=== PATIENT | female | born 1950 | race Caucasian/White ===

== ENCOUNTER → 2020-05-01 | Outpatient (CLI) | payer MEDICARE, OTHER ==
[~2020-05-01] MED LIST: ASPIR 8181 M1 PO; CALCIUM ACETAT667 M1 PO; CELEXA40 MG PO; CIFEREX 3,7751 EACH PO; COREG3.125 MG PO; COUMADIN 3 MG TA3 M1 PO; DIALYVITE 8000.8 M1 PO; ESTER-C 1,0001 EACH PO; GABAPENTIN100 MG PO; KEPPRA 500 MG500 MG PO; LASIX 80 MG TAB80 MG PO; LEVO-T125 MCG PO; MIRTAZAPINE15 M2 PO; NORCO 5-325 TA1 EAC2 PO; NOVOLIN N100 UNIT/2 SUBQ; OMEGA-3 KRILL1 EAC2 PO; PACERONE 200 M200 M1 PO; PACERONE200 MG PO; ROSUVASTATIN CA40 MG PO; VITAMIN B-121000 MC2 PO; VITAMIN D325 MC2 PO; WARFARIN SODIUM2 MG PO; ZETIA10 MG PO
== END ==
LOC: M.LAB 09:26
PROVIDERS: ATTEND Surgery
DX: Z01.812 Encounter for preprocedural laboratory examination (principal); Z20.828 Contact with and (suspected) exposure to other viral communicable diseases; N18.6 End stage renal disease

== ENCOUNTER → 2020-05-06 | Day surgery (SDC) | payer MEDICARE, OTHER ==
--- NOTE | ~2020-05-06 | OP ---
[facility] [address] [place] [address] OPERATIVE REPORT Name: TRUE RAMIREZ Room: [facility]#: [id number] Admission: 05/06/20 Attend Phys: Jas Mancera Discharge: Date of : 52 Report #: [id number] THIS REPORT FOR: //name// cc: DONNIE TATE KEVIN ~ CC: Allison TATE DATE OF SERVICE: 05/06/2020 PREOPERATIVE DIAGNOSIS: End-stage renal disease. POSTOPERATIVE DIAGNOSIS: End-stage renal disease. PROCEDURE: Removal of tunneled intraperitoneal catheter. SURGEON: Jas Mancera MD ANESTHESIA: General. ESTIMATED BLOOD LOSS: Minimal. SPECIMEN: None. DESCRIPTION OF PROCEDURE: After informed consent was obtained, the patient was brought to the operating room and placed supine. SCDs were placed and working, preoperative clindamycin was administered, general anesthesia was induced. The abdomen was prepped and draped in the usual sterile fashion. I made an elliptical incision around the exit site. Cautery dissection was made to dissect around the cuff, which was freed up. I then made a counter incision over the internal cuff. Cautery dissection was made down to the fascia and the external cuff was freed up with cautery and removed. The catheter slid out very easily after that. The skin was then closed with 4-0 Monocryl. Incisions were sealed with Dermabond. COMPLICATIONS: None. DISPOSITION: The patient was taken to recovery in satisfactory condition. By: [id number] Mancera MD /le[place]on
[2020-05-06 06:37] LABS: HEMATOCRIT 28.6 % (37.0-47.0); HEMOGLOBIN 9.2 gm/dL (12.0-15.0); MCH 33.7 pg (26.0-34.0); MCHC 32.4 g/dL (28.0-37.0); MCV 104.3 fL (80.0-100.0); MPV 7.5 fl. (7.2-11.1); RBC 2.74 mil/uL (4.20-5.00); RDW-CV 20.5 % (10.5-14.5)
[2020-05-06 06:51] LABS: CALCIUM 9.4 mg/dL (8.5-10.1); CREATININE 7.5 mg/dL (0.6-1.3); POTASSIUM 4.7 mmol/L (3.5-5.1)
[2020-05-06 06:56] LABS: ALBUMIN 3.8 g/dL (3.4-5.0); TOTAL BILIRUBIN 0.4 mg/dL (<0.1-1.0); TOTAL PROTEIN 7.7 g/dL (6.4-8.2)
[2020-05-06 07:16] LABS: APTT 22.4 Seconds (25.0-31.3); INR 1.1; PROTIME 10.7 Seconds (9.20-11.50)
--- NOTE | 2020-05-06 18:30 | EKG ---
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: [facility] : 1950 Requested By: Jas Mancera Order Number: [id number] Meredith MD: Andrew Azar Measurements Intervals [place] Rate: 123 P: PA: QRS: 68 QRSD: 148 T: -39 QT: 405 QTc: 580 Interpretive Statements Junctional tachycardia Right bundle branch block Inferior infarct, age indeterminate No previous ECG available for comparison Electronically Signed On 05-06-2020 18:29:58 CDT by Andrew Azar [email or web address] <ELECTRONICALLY SIGNED> By: Andrew Azar MD, [facility] 05/06/20 1829 Andrew zAar MD, [facility] /EPI
== END | disposition home or self-care (01) ==
LOC: M.SUR 06:16
PROVIDERS: ATTEND Surgery
DX: I13.2 Hypertensive heart and chronic kidney disease with heart failure and with stage 5 chronic kidney disease, or end stage renal disease (principal); I50.9 Heart failure, unspecified; N18.6 End stage renal disease; E11.22 Type 2 diabetes mellitus with diabetic chronic kidney disease; E03.9 Hypothyroidism, unspecified; I25.10 Atherosclerotic heart disease of native coronary artery without angina pectoris; F32.9 Major depressive disorder, single episode, unspecified; I48.0 Paroxysmal atrial fibrillation; Z99.2 Dependence on renal dialysis; Z79.82 Long term (current) use of aspirin; Z79.84 Long term (current) use of oral hypoglycemic drugs; Z79.899 Other long term (current) drug therapy; Z98.890 Other specified postprocedural states; Z88.2 Allergy status to sulfonamides; Z88.1 Allergy status to other antibiotic agents; Z88.8 Allergy status to other drugs, medicaments and biological substances; Z95.5 Presence of coronary angioplasty implant and graft

== ENCOUNTER 2021-01-06 16:30 | Emergency (ER) | payer MEDICARE, OTHER ==
[~2021-01-06] VITALS: Ht 157.5 cm; Wt 90.7 kg
[2021-01-06 17:13] LABS: HEMATOCRIT 29.9 % (37.0-47.0); HEMOGLOBIN 10.1 gm/dL (12.0-15.0); MCH 34.1 pg (26.0-34.0); MCHC 33.9 g/dL (28.0-37.0); MCV 100.6 fL (80.0-100.0); MPV 8.4 fl. (7.2-11.1); NUCLEATED RBCS 0 /100WBC; PLATELET COUNT* 107 thou/uL (150-400); RBC 2.97 mil/uL (4.20-5.00); RDW-CV 16.6 % (10.5-14.5); WBC 5.8 thou/uL (4.0-11.0)
[2021-01-06 17:21] LABS: CALCIUM 8.8 mg/dL (8.5-10.1); CREATININE 4.2 mg/dL (0.6-1.3); POTASSIUM 3.5 mmol/L (3.5-5.1)
[2021-01-06 17:26] LABS: ALBUMIN 3.6 g/dL (3.4-5.0); TOTAL BILIRUBIN 0.4 mg/dL (<0.1-1.0); TOTAL PROTEIN 7.1 g/dL (6.4-8.2)
[2021-01-06 17:46] LABS: ABSOLUTE LYMPHOCYTES 1.4 thou/uL (0.8-5.3); ABSOLUTE MONOCYTES 0.2 thou/uL (0.0-1.2); ABSOLUTE NEUTROPHILS 4.2 thou/uL (1.6-8.1)
[2021-01-06 17:47] LABS: ANISOCYTOSIS 1+; PLATELET ESTIMATE ADEQUATE
[2021-01-06] MEDS ORDERED: MECLIZINE HCL25 M1 PO (18:01)
[2021-01-06 18:38] VITALS: BP 120/41
--- NOTE | 2021-01-07 09:02 | EKG ---
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[place] : 1950 Requested By: Miguel Hartman Order Number: [id number] MD: Andrew Azar Measurements Intervals [place] Rate: 132 P: MO: QRS: 73 QRSD: 153 T: 230 QT: 379 QTc: 562 Interpretive Statements Atrial fibrillation Right bundle branch block Inferior infarct, age indeterminate Artifact in lead(s) I,II,III,aVR,aVL,aVF,V2,V3,V4,V5,V6 Compared to ECG 05/06/2020 06:36:25 Junctional tachycardia no longer present Myocardial infarct finding still present Electronically Signed On 01-07-2021 9:01:51 CDT by Andrew Azar [email or web address] <ELECTRONICALLY SIGNED> By: Andrew Azar MD, FACC 01/07/21900 00 00 Andrew Azar MD, [facility] /EPI
== END 2021-01-06 18:39 | disposition home or self-care (01) ==
LOC: M.ERS 16:30
PROVIDERS: Emergency Medicine Emergency Medical Services
DX: R42 Dizziness and giddiness (principal); E11.9 Type 2 diabetes mellitus without complications; Z88.1 Allergy status to other antibiotic agents; Z88.2 Allergy status to sulfonamides; Z88.0 Allergy status to penicillin; Z88.8 Allergy status to other drugs, medicaments and biological substances; Z99.2 Dependence on renal dialysis

== ENCOUNTER 2021-01-29 12:09 | Inpatient (IN) | payer MEDICARE, OTHER ==
[~2021-01-29] VITALS: Ht 157.5 cm; Wt 89.4 kg
--- NOTE | ~2021-01-29 | CON ---
[address] [address] CONSULTATION Name: TRUE RAMIREZ Room: [address] IN .[place].#: [id number] Admission: 01/29/21 Attend Phys: Wally Grove MD Discharge: Date of : 52 Report #: [id number] THIS REPORT FOR: cc: DONNIE TATE,Rita Juares MD ~ DOC #: [id number] Rita Tomas MD DATE OF CONSULTATION: 01/30/2021 NEPHROLOGY CONSULTATION CONSULTING PHYSICIAN: Dr. Trejo. REASON FOR NEPHROLOGY CONSULTATION: ESRD, for maintenance hemodialysis. REASON FOR ADMISSION: Seizures. CHIEF COMPLAINT: She had a seizure-like activity at the dialysis facility. HISTORY OF PRESENT ILLNESS: This is a 71-year-old female who has end-stage renal disease, on hemodialysis every Wednesday, Wednesday and Wednesday, has a left arm AV fistula, goes to [facility], had a seizure-like activity at dialysis, hence unable to do her dialysis and was brought to the Emergency Room here. She has not had a seizure over here yet and Neurology is evaluating her. She was dialyzed yesterday here in the hospital. She has a history of seizures and apparently takes medication for it. She has been in the rehab place recently because of fall and broken humerus. She, otherwise, has no complaints today. ALLERGIES: TO CEPHALOSPORINS, CIPROFLOXACIN, SULFA, TAZOBACTAM, ATORVASTATIN, PENICILLINS. REVIEW OF SYSTEMS: As mentioned in history of present illness, otherwise 10-point review of systems are negative. HOME MEDICATIONS: Which include baby aspirin, Coumadin, NPH insulin, gabapentin, lactulose, metoprolol, ranolazine, sevelamer, folic acid, Novolin, senna, Tarceva, vitamin B12, levothyroxine, vitamin D3, mirtazapine, amiodarone, Lasix, Zetia, ascorbic calcium, Dialyvite, rosuvastatin. PAST MEDICAL AND SURGICAL HISTORY: Which includes ESRD, on hemodialysis every Wednesday, Wednesday and Wednesday. She has a left arm AV fistula, diabetes mellitus type 2, seizures, hypertension, [place] [address] CONSULTATION Name: TRUE RAMIREZ Room: [address] IN [facility].#: [id number] Admission: 01/29/21 Attend Phys: Wally Groev MD Discharge: Date of : 52 Report #: [id number] FAMILY HISTORY: Reviewed, noncontributory. SOCIAL HISTORY: Does not smoke or drink alcohol or use illicit drugs. PHYSICAL EXAMINATION: VITAL SIGNS: Her blood pressure is 120/36, temperature 36.5, pulse rate is 60, respiratory rate is 16, pulse ox is 96%. She was on 2 liters of oxygen via nasal cannula. GENERAL: She is awake, alert, oriented x 3. HEAD AND EYES: Atraumatic, normocephalic. Conjunctivae were normal. EARS, NOSE AND THROAT: Normal ears and nose. Mucous membranes are moist. NECK: No JVD. CHEST: Bilaterally clear to auscultation anteriorly. No crackles or wheezing. CARDIOVASCULAR: S1, S2 normal. No murmurs. ABDOMEN: Soft, nondistended, nontender. LOWER EXTREMITIES: There is no lower extremity edema. DIALYSIS ACCESS: She has a left arm AV fistula with good bruit and good thrill. LABORATORY DATA: WBC is 5.3, hemoglobin is 8.2. Sodium 138, potassium 3.6, CO2 of 33. Other labs are reviewed. IMAGING: Chest x-ray was reviewed. ASSESSMENT: 1. End-stage renal disease, on hemodialysis every Wednesday, Wednesday and Wednesday, she had her complete dialysis yesterday in the hospital. 2. History of seizures, came in with a seizure. Neurology is evaluating. 3. Mitral valve replacement and she is on Coumadin. 4. Anemia of chronic kidney disease. 5. Hypertension. 6. Diabetes type 2. We will defer to primary team for management. PLAN: 1. Next dialysis will be tomorrow. 2. Erythropoietin added for anemia. Thank you for this consultation. We will continue to follow for dialysis needs. MD Regalado/[place] [address] CONSULTATION Name: TRUE RAMIREZ Room: [place] [address] ADM IN ..#: [id number] Admission: 01/29/21 Attend Phys: Wally Grove MD Discharge: Date of : 52 Report #: [id number] By: [id number] Tomas MD /leighton
--- NOTE | ~2021-01-29 | CON ---
[address] [address] CONSULTATION Name: TRUE RAMIREZ Room: [place] [address] ADM IN [place].#: [id number] Admission: 01/29/21 Attend Phys: Wally Grove MD Discharge: Date of : 52 Report #: [id number] THIS REPORT FOR: cc: DONNIE TATE,DONNIE Alex,Clifford Baltazar MD ~ DOC #: [id number] Clifford Alex MD DATE OF CONSULTATION: 01/29/2021 HISTORY OF PRESENT ILLNESS: This is a 71-year-old female patient who was evaluated by me for seizure. History is very difficult in this patient. There is no firsthand witness. The patient says she lives by herself. She said she started having seizures 1 year ago. She was taken to [facility]. It was during the COVID pandemic. She does not believe that there is any testing on her and just sent her home. She saw a neurologist who told her that she has seizure. I do not have any records in that regard. He put her on some medication, the name of which she does not know. Record indicates it is Keppra, but she does not think it is Keppra. She did get a dose of Keppra in the Emergency Room. I have asked the nurses to call the pharmacy and see if we can get any records in this patient to see what medication she was on. REVIEW OF SYSTEMS: A 14-point review of system was carried out. She is on dialysis. She does not know why she went on dialysis. She had a mitral valve replacement. She has a history of diabetes. She has severe anxiety. She is very claustrophobic and she says even the thought of doing a CAT scan or MRI makes her very nervous. She does have tremor. She takes gabapentin for that. She is on warfarin for the valve replacement. She does have a history of diabetes. She denies any eye, ENT, cardiac, respiratory, GI, musculoskeletal, constitutional, dermatological, hematological, psychiatric, and throat symptom associated with present symptomatology, but she says she is a very, very nervous person. PAST MEDICAL HISTORY: Positive for being on dialysis. FAMILY HISTORY: Unremarkable. SOCIAL HISTORY: She does not drink any alcohol or smoke. PHYSICAL EXAMINATION: VITALS: Blood pressure is 129/73, respirations 20, pulse is 63, and temperature is 97.8. NEUROLOGIC: She is alert. She is responsive. She can follow simple commands. She knows what month it is. Cranial nerve examinations appear unremarkable. Speech looks intact. She moves all 4 extremities symmetr[place] [address] CONSULTATION Name: RAMIREZTRUE Surendra Room: [address] IN ..#: [id number] Admission: 01/29/21 Attend Phys: Wally Grove MD Discharge: Date of : 52 Report #: [id number] sense is present. Reflexes are diminished. She does not appear to be ataxic. I did not make her walk. There is no meningeal sign. I could not look at the patient's fundus. She is morbidly obese. Her hearing and vision look adequate. She does not appear to have a thyroid mass or carotid bruit. CARDIAC/RESPIRATORY: She has a valve replacement. No respiratory difficulty was noticed. Pulses are difficult to feel, but she does not have any edema. LABORATORY DATA: Her last platelet count is 123. GFR is 5. She did not have any imaging studies here. IMPRESSION AND PLAN: Poorly defined history of seizure. She is also very anxious. I have asked the nurse to call the pharmacy and then call me to see if we can find out what medication she was on for seizures, so that we could start that. She will not let me do another CT, she says she has it, because she is very nervous. I offered EEG. She did not let me do that either. I think we can start her on the same medication. Thank you very much for this referral and if you have any question, please feel free to contact me. Clifford Alex MD PK/MARITZA By: [id number] Alex MD /nt
[~2021-01-29 12:09] MED LIST changes: +MECLIZINE HCL25 M1 PO
[2021-01-29 12:11] VITALS: BP 111/43
[2021-01-29] MEDS ORDERED: ASA81BEC PO (12:26)
[2021-01-29] MEDS ORDERED: KRISTALOSE20 GM PO (12:27)
[2021-01-29] MEDS ORDERED: LOPRESSOR50 MG PO (12:28)
[2021-01-29] MEDS ORDERED: RANOLAZINE ER500 MG PO (12:28)
[2021-01-29] MEDS ORDERED: WARFARIN SODIU2.5 MG PO (12:29)
[2021-01-29] MEDS ORDERED: RENVELA0.8 GM PO (12:29)
[2021-01-29 12:55] LABS: ABSOLUTE BASOPHILS 0.1 thou/uL (0.0-0.2); ABSOLUTE EOSINOPHILS 0.2 thou/uL (0.0-0.7); ABSOLUTE LYMPHOCYTES 1.3 thou/uL (0.8-5.3); ABSOLUTE MONOCYTES 0.5 thou/uL (0.0-1.2); EOSINOPHILS 2.1 %; HEMATOCRIT 24.7 % (37.0-47.0); HEMOGLOBIN 8.6 gm/dL (12.0-15.0); LYMPHOCYTES 16.3 %; MCH 34.3 pg (26.0-34.0); MCHC 34.8 g/dL (28.0-37.0); MCV 98.5 fL (80.0-100.0); MONOCYTES 6.1 %; MPV 8.9 fl. (7.2-11.1); NUCLEATED RBCS 0 /100WBC; PLATELET COUNT* 123 thou/uL (150-400); POLYS 74.5 %; RBC 2.51 mil/uL (4.20-5.00); RDW-CV 15.8 % (10.5-14.5)
[2021-01-29 13:01] LABS: CALCIUM 8.9 mg/dL (8.5-10.1); CREATININE 7.4 mg/dL (0.6-1.3); POTASSIUM 4.3 mmol/L (3.5-5.1)
[2021-01-29 13:06] LABS: ALBUMIN 3.3 g/dL (3.4-5.0); TOTAL BILIRUBIN 0.3 mg/dL (<0.1-1.0); TOTAL PROTEIN 6.7 g/dL (6.4-8.2)
[2021-01-29 14:25] VITALS: BP 111/43
[2021-01-29 14:42] VITALS: BP 129/73
[2021-01-29] MEDS ORDERED: FOLIC ACID1 MG PO (15:30)
[2021-01-29] MEDS ORDERED: LASIX 40 MG TAB40 MG PO (15:33)
[2021-01-29] MEDS ORDERED: NOVOLIN R100 UNIT/1 SUBLING (15:36)
[2021-01-29] MEDS ORDERED: SENNA PLUS TAB1 EACH PO (15:41)
[2021-01-29] MEDS ORDERED: VITAMIN B-121000 MC2 PO (15:42)
[2021-01-29] MEDS ORDERED: TRESIBA FL100 UNIT/1 SUBQ (15:42)
[2021-01-29 17:59] LABS: INR 1.5; PROTIME 15.9 Seconds (9.20-11.50)
[2021-01-29 21:30] VITALS: BP 93/76
[2021-01-29 23:58] VITALS: BP 111/32
[2021-01-30 04:00] VITALS: BP 107/28
[2021-01-30 05:15] LABS: ABSOLUTE EOSINOPHILS 0.2 thou/uL (0.0-0.7); ABSOLUTE LYMPHOCYTES 1.6 thou/uL (0.8-5.3); ABSOLUTE MONOCYTES 0.4 thou/uL (0.0-1.2); ABSOLUTE NEUTROPHILS 3.1 thou/uL (1.6-8.1); BASOPHILS 0.6 %; HEMATOCRIT 23.7 % (37.0-47.0); HEMOGLOBIN 8.2 gm/dL (12.0-15.0); LYMPHOCYTES 29.3 %; MCH 34.3 pg (26.0-34.0); MCHC 34.5 g/dL (28.0-37.0); MCV 99.6 fL (80.0-100.0); MPV 8.6 fl. (7.2-11.1); NUCLEATED RBCS 0 /100WBC; PLATELET COUNT* 99 thou/uL (150-400); POLYS 59.1 %; RBC 2.38 mil/uL (4.20-5.00); RDW-CV 15.9 % (10.5-14.5); WBC 5.3 thou/uL (4.0-11.0)
[2021-01-30 05:27] LABS: CALCIUM 8.2 mg/dL (8.5-10.1); POTASSIUM 3.6 mmol/L (3.5-5.1)
[2021-01-30 05:34] LABS: CREATININE 4.6 mg/dL (0.6-1.3)
[2021-01-30 07:30] VITALS: BP 113/53
--- NOTE | 2021-01-30 11:39 | EKG ---
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: [place] : 1950 Requested By: Thien Trejo Order Number: [id number] MD: Andrew Azar Measurements Intervals [place] Rate: 53 P: 0 DC: 62 QRS: 65 QRSD: 164 T: 36 QT: 536 QTc: 504 Interpretive Statements Sinus rhythm Right bundle branch block Baseline wander in lead(s) II,III,aVF Compared to ECG 01/06/2021 17:01:13 Atrial fibrillation no longer present Myocardial infarct finding no longer present Electronically Signed On 01-30-2021 11:39:47 CDT by Andrew Azar [email or web address] <ELECTRONICALLY SIGNED> By: Andrew Azar MD, FAC 01/30/21 1139 1224 1224 Andrew Azar MD, [facility] /EPI
[2021-01-30 12:00] VITALS: BP 138/37
[2021-01-30 16:00] VITALS: BP 134/59
[2021-01-30 17:07] LABS: HEPATITIS B SURFACE AG Negative (Negative)
[2021-01-30 20:00] VITALS: BP 110/39
[2021-01-31 00:42] VITALS: BP 125/43
[2021-01-31 04:12] LABS: ABSOLUTE EOSINOPHILS 0.2 thou/uL (0.0-0.7); ABSOLUTE LYMPHOCYTES 1.2 thou/uL (0.8-5.3); ABSOLUTE MONOCYTES 0.3 thou/uL (0.0-1.2); ABSOLUTE NEUTROPHILS 3.5 thou/uL (1.6-8.1); BASOPHILS 0.5 %; EOSINOPHILS 2.9 %; HEMATOCRIT 22.6 % (37.0-47.0); HEMOGLOBIN 7.8 gm/dL (12.0-15.0); LYMPHOCYTES 23.5 %; MCH 33.7 pg (26.0-34.0); MCHC 34.5 g/dL (28.0-37.0); MCV 97.8 fL (80.0-100.0); MONOCYTES 6.5 %; MPV 8.6 fl. (7.2-11.1); NUCLEATED RBCS 0 /100WBC; PLATELET COUNT* 113 thou/uL (150-400); POLYS 66.6 %; RBC 2.31 mil/uL (4.20-5.00); RDW-CV 16.1 % (10.5-14.5); WBC 5.3 thou/uL (4.0-11.0)
[2021-01-31 04:22] LABS: CALCIUM 8.3 mg/dL (8.5-10.1); POTASSIUM 3.6 mmol/L (3.5-5.1)
[2021-01-31 04:28] LABS: CREATININE 6.6 mg/dL (0.6-1.3)
[2021-01-31 08:34] VITALS: BP 126/38
[2021-01-31] MEDS ORDERED: KEPPRA 500 MG500 MG PO (10:05)
[2021-01-31 11:02] LABS: INR 1.4; PROTIME 14.6 Seconds (9.20-11.50)
[2021-01-31 11:20] VITALS: BP 126/38
== END 2021-01-31 18:45 | DRG 100 ==
LOC: M.ERS 12:09 → M.TBA-ER 12:54 → M.2W 12:54 → M.ORTHSURG 01-31 00:08
PROVIDERS: Family Medicine; ADMIT Internal Medicine; ATTEND Internal Medicine
DX: R56.9 Unspecified convulsions (principal); N18.6 End stage renal disease; S42.301A Unspecified fracture of shaft of humerus, right arm, initial encounter for closed fracture; I12.0 Hypertensive chronic kidney disease with stage 5 chronic kidney disease or end stage renal disease; Z20.822 Contact with and (suspected) exposure to COVID-19; E11.22 Type 2 diabetes mellitus with diabetic chronic kidney disease; D63.1 Anemia in chronic kidney disease; Z99.2 Dependence on renal dialysis; Z87.81 Personal history of (healed) traumatic fracture; Z95.2 Presence of prosthetic heart valve; Z88.1 Allergy status to other antibiotic agents; Z88.0 Allergy status to penicillin; Z88.2 Allergy status to sulfonamides; Z88.8 Allergy status to other drugs, medicaments and biological substances; W18.39XA Other fall on same level, initial encounter; Y93.89 Activity, other specified; Y92.89 Other specified places as the place of occurrence of the external cause; Y99.8 Other external cause status

== ENCOUNTER 2021-03-03 12:03 | Observation (INO) | payer MEDICARE, OTHER ==
[~2021-03-03] VITALS: Ht 157.5 cm; Wt 90.3 kg
--- NOTE | ~2021-03-03 | CON ---
[address] [address] CONSULTATION Name: TRUE RAMIREZ Room: [address] [place]#: [id number] Admission: 03/03/21 Attend Phys: Marcia Arnold Discharge: Date of : 52 Report #: [id number] THIS REPORT FOR: cc: DONNIE TATE,DONNIE Schwarz,Allison Cronin MD ~ DATE OF CONSULTATION: 03/04/2021 CONSULT REQUESTED BY: Donald Sutherland DO. REASON FOR CONSULTATION: End-stage kidney disease. HISTORY OF PRESENT ILLNESS: A 71-year-old female with a history of end-stage kidney disease. She dialyzes Wednesday, Wednesday, and Wednesday at the [place] dialysis unit, missed her dialysis yesterday, had a temperature of 100.0. She tells me she believes the highest temperature she had was 100.6. She was feeling fine. She denies any cough, chest pain or new shortness of breath. She is presently seen on dialysis, is tolerating treatment well. She is anuric. REVIEW OF SYSTEMS: Constitutional, psych, heme, eyes, ENT, respiratory, cardiac, GI, , endocrine, all negative except as documented above. PAST MEDICAL HISTORY: End-stage kidney disease, on hemodialysis, at one time she was on peritoneal dialysis; diabetes type 2; seizures; hypertension; history of mitral valve replacement. FAMILY HISTORY: Noncontributory in this 71-year-old female. CURRENT MEDICATIONS: Reviewed. SOCIAL HISTORY: No tobacco or alcohol. PHYSICAL EXAMINATION: VITAL SIGNS: Blood pressure is 141/51, pulse 59, respirations 16, temperature 36.6. GENERAL: No acute distress. HEENT: Eyes are open. Ears externally normal. NECK: Supple. CARDIOVASCULAR: Regular rate. LUNGS: No crackles. ABDOMEN: Soft. MUSCULOSKELETAL: Nontender. PSYCHIATRIC: Awake, alert. LABORATORY DATA: White cell count 8.1, hemoglobin 7.5, [place] [address] CONSULTATION Name: TRUE RAMIREZ Room: [address] [place]#: [id number] Admission: 03/03/21 Attend Phys: Marcia Arnold Discharge: Date of : 52 Report #: [id number], potassium 4.3, chloride 104, bicarbonate 31, BUN 65, creatinine 11, glucose 116, calcium 8.6. PLAN: The patient will undergo dialysis today. She will need dialysis again tomorrow. Should she remain inpatient, we can do that here. Should she discharge, she can go to her outpatient dialysis unit. I will discontinue the Lasix as she is anuric and there is no indication to continue the Lasix at this time. She has some mild congestion on her chest x-ray. We will ultrafilter with dialysis as tolerated. Anemia and thrombocytopenia per Internal Medicine. Insulin-dependent diabetes type 2 per Internal Medicine. Secondary hyperparathyroidism, continue sevelamer. By: [id number] Mehrdad Schwarz MD /nt
[~2021-03-03 12:03] MED LIST changes: +ASA81BEC PO; +FOLIC ACID1 MG PO; +KRISTALOSE20 GM PO; +LASIX 40 MG TAB40 MG PO; +LOPRESSOR50 MG PO; +NOVOLIN R100 UNIT/1 SUBLING; +RANOLAZINE ER500 MG PO; +RENVELA0.8 GM PO; +SENNA PLUS TAB1 EACH PO; +TRESIBA FL100 UNIT/1 SUBQ; +WARFARIN SODIU2.5 MG PO
[2021-03-03 12:16] VITALS: BP 128/59
[2021-03-03 13:04] LABS: ABSOLUTE EOSINOPHILS 0.1 thou/uL (0.0-0.7); ABSOLUTE LYMPHOCYTES 1.1 thou/uL (0.8-5.3); ABSOLUTE MONOCYTES 0.5 thou/uL (0.0-1.2); ABSOLUTE NEUTROPHILS 5.6 thou/uL (1.6-8.1); BASOPHILS 0.4 %; EOSINOPHILS 1.9 %; HEMATOCRIT 22.7 % (37.0-47.0); HEMOGLOBIN 7.4 gm/dL (12.0-15.0); LYMPHOCYTES 14.4 %; MCH 32.7 pg (26.0-34.0); MCHC 32.5 g/dL (28.0-37.0); MCV 100.7 fL (80.0-100.0); MONOCYTES 7.3 %; MPV 8.6 fl. (7.2-11.1); NUCLEATED RBCS 0 /100WBC; PLATELET COUNT* 91 thou/uL (150-400); RBC 2.26 mil/uL (4.20-5.00); WBC 7.4 thou/uL (4.0-11.0)
[2021-03-03 13:11] LABS: CALCIUM 8.8 mg/dL (8.5-10.1); CREATININE 9.8 mg/dL (0.6-1.3)
[2021-03-03 13:21] LABS: ALBUMIN 3.3 g/dL (3.4-5.0); TOTAL BILIRUBIN 0.4 mg/dL (<0.1-1.0); TOTAL PROTEIN 6.5 g/dL (6.4-8.2)
--- NOTE | 2021-03-03 13:32 | EKG ---
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: : 1950 Requested By: Thien Trejo Order Number: [id number] MD: Herbie Frederick Measurements Intervals [place] Rate: 67 P: 77 MO: 235 QRS: 66 QRSD: 146 T: 54 QT: 499 QTc: 527 Interpretive Statements Sinus rhythm Prolonged [place] interval Right bundle branch block Compared to ECG 01/29/2021 12:24:24 rate has increased Electronically Signed On 03-03-2021 13:32:39 CDT by Herbie Frederick [email or web address] <ELECTRONICALLY SIGNED> By: Herbie Frederick MD, [facility] 03/03/21 1332 1308 1308 Herbie Frederick MD, [facility] /EPI
[2021-03-03 21:45] VITALS: BP 159/67
[2021-03-04 02:24] VITALS: BP 167/79
[2021-03-04 04:16] LABS: CALCIUM 8.6 mg/dL (8.5-10.1); POTASSIUM 4.3 mmol/L (3.5-5.1)
[2021-03-04 04:26] LABS: HEMATOCRIT 22.5 % (37.0-47.0); HEMOGLOBIN 7.5 gm/dL (12.0-15.0); MCH 33.5 pg (26.0-34.0); MCHC 33.5 g/dL (28.0-37.0); MPV 8.7 fl. (7.2-11.1); RBC 2.25 mil/uL (4.20-5.00); RDW-CV 16.3 % (10.5-14.5); WBC 8.1 thou/uL (4.0-11.0)
[2021-03-04 06:05] VITALS: BP 118/47
[2021-03-04 08:35] VITALS: BP 155/70
[2021-03-04 08:54] VITALS: BP 141/51
[2021-03-04 09:45] VITALS: BP 141/51
[2021-03-04 15:40] LABS: ALBUMIN 3.5 g/dL (3.4-5.0); PHOSPHORUS* 2.4 mg/dL (2.5-4.9)
[2021-03-04 15:42] LABS: CREATININE 5.6 mg/dL (0.6-1.3)
== END 2021-03-04 16:21 ==
LOC: M.ERS 12:03 → M.TBA-ER 13:46 → M.2W 13:46 → M.TBA-ER 03-04 01:00 → M.2W 03-04 08:47
PROVIDERS: Family Medicine; Internal Medicine Nephrology; ADMIT Internal Medicine; ATTEND Internal Medicine
DX: R50.9 Fever, unspecified (principal); E87.0 Hyperosmolality and hypernatremia; I12.0 Hypertensive chronic kidney disease with stage 5 chronic kidney disease or end stage renal disease; E11.22 Type 2 diabetes mellitus with diabetic chronic kidney disease; N18.6 End stage renal disease; Z20.822 Contact with and (suspected) exposure to COVID-19; E78.5 Hyperlipidemia, unspecified; E03.9 Hypothyroidism, unspecified; D63.1 Anemia in chronic kidney disease; E66.9 Obesity, unspecified; Z68.39 Body mass index [BMI] 39.0-39.9, adult; Z79.899 Other long term (current) drug therapy; Z99.2 Dependence on renal dialysis

== ENCOUNTER 2021-04-09 07:43 | Emergency (ER) | payer MEDICARE, OTHER ==
[~2021-04-09] VITALS: Ht 157.5 cm; Wt 89.4 kg
[2021-04-09 08:53] LABS: ABSOLUTE EOSINOPHILS 0.1 thou/uL (0.0-0.7); ABSOLUTE LYMPHOCYTES 1.1 thou/uL (0.8-5.3); ABSOLUTE MONOCYTES 0.5 thou/uL (0.0-1.2); ABSOLUTE NEUTROPHILS 4.2 thou/uL (1.6-8.1); BASOPHILS 0.4 %; EOSINOPHILS 1.6 %; HEMATOCRIT 23.3 % (37.0-47.0); HEMOGLOBIN 7.5 gm/dL (12.0-15.0); LYMPHOCYTES 18.6 %; MCH 32.2 pg (26.0-34.0); MCHC 32.3 g/dL (28.0-37.0); MCV 99.5 fL (80.0-100.0); MONOCYTES 8.5 %; MPV 9.2 fl. (7.2-11.1); NUCLEATED RBCS 0 /100WBC; PLATELET COUNT* 94 thou/uL (150-400); POLYS 70.9 %; RBC 2.34 mil/uL (4.20-5.00); RDW-CV 16.5 % (10.5-14.5); WBC 5.9 thou/uL (4.0-11.0)
[2021-04-09 08:56] LABS: CALCIUM 8.6 mg/dL (8.5-10.1); CREATININE 7.2 mg/dL (0.6-1.3); POTASSIUM 5.8 mmol/L (3.5-5.1)
[2021-04-09 09:01] LABS: ALBUMIN 3.5 g/dL (3.4-5.0); TOTAL BILIRUBIN 0.4 mg/dL (<0.1-1.0); TOTAL PROTEIN 6.6 g/dL (6.4-8.2)
[2021-04-09 09:25] VITALS: BP 95/41
== END 2021-04-09 10:03 | disposition home or self-care (01) ==
LOC: M.ERS 07:43
PROVIDERS: Family Medicine
DX: R53.1 Weakness (principal); E11.22 Type 2 diabetes mellitus with diabetic chronic kidney disease; N18.6 End stage renal disease; Z79.82 Long term (current) use of aspirin; Z79.4 Long term (current) use of insulin; Z79.899 Other long term (current) drug therapy; Z88.0 Allergy status to penicillin; Z88.2 Allergy status to sulfonamides; Z88.8 Allergy status to other drugs, medicaments and biological substances; Z88.1 Allergy status to other antibiotic agents

== ENCOUNTER 2021-06-25 11:29 | Observation (INO) | payer MEDICARE, OTHER ==
[~2021-06-25] VITALS: Ht 157.5 cm; Wt 92.1 kg
--- NOTE | ~2021-06-25 | CON ---
[address] [address] CONSULTATION Name: TRUE RAMIREZ Room: [address] [place]#: [id number] Admission: 06/25/21 Attend Phys: Janessa Kaplan Discharge: Date of : 52 Report #: [id number] THIS REPORT FOR: cc: DONNIE TATE,Allison Peters MD ~ DATE OF CONSULTATION: 06/26/2021 NEPHROLOGY CONSULT CONSULTING PHYSICIAN: Belén Nguyen MD. REASON FOR CONSULTATION: End-stage kidney disease. HISTORY OF PRESENT ILLNESS: A 71-year-old female with a history of end-stage kidney disease, who came in with significant hyperkalemia, potassium 7.3. She was urgently dialyzed. Potassium is better. She is feeling well, hoping to go home today. She has no complaints. REVIEW OF SYSTEMS: Constitutional, psych, heme, eyes, ENT, respiratory, cardiac, GI, , endocrine, all negative except as documented above. PAST MEDICAL HISTORY: End-stage kidney disease; history of prior peritoneal dialysis; diabetes, insulin-dependent; history of mitral valve replacement; seizures; secondary hyperparathyroidism; hypothyroidism. SOCIAL HISTORY: No tobacco. FAMILY HISTORY: Not pertinent in this 71-year-old female. CURRENT MEDICATIONS: Reviewed. PHYSICAL EXAMINATION: VITAL SIGNS: Blood pressure is 112/37, pulse 65, respirations 20, temperature 36.5. GENERAL: No acute distress. HEENT: Eyes are open. Ears externally normal. NECK: Supple. CARDIOVASCULAR: Regular rate. LUNGS: Diminished. GASTROINTESTINAL: Negative. MUSCULOSKELETAL: Nontender. PSYCHIATRIC: Awake, alert. LABORATORY DATA: White cell count 6.5, hemoglobin 10, platelets 72. Sodium [facility] [address] [place] [address] CONSULTATION Name: TRUE RAMIREZ Room: [address] [place]#: [id number] Admission: 06/25/21 Attend Phys: Janessa Kaplan Discharge: Date of : 52 Report #: [id number], potassium 4.1, chloride 98, bicarbonate 30, BUN 71, creatinine 7.3, glucose 154, calcium 8.2. ASSESSMENT: 1. End-stage kidney disease, hemodialysis Wednesday, Wednesday and Wednesday at the [place] dialysis unit. 2. Severe hyperkalemia on admission, now resolved after dialysis. 3. History of mitral valve replacement. 4. Insulin-dependent diabetes type 2. 5. Thrombocytopenia per Internal Medicine. 6. Secondary hyperparathyroidism, on sevelamer. 7. History of seizure disorder. PLAN: The patient tolerated dialysis well yesterday. No indication for dialysis today. We will follow for dialysis needs on a Wednesday, Wednesday, Wednesday schedule. Thank you for requesting my opinion in the care and management of this patient. By: 1039 1229Abid Mehrdad Schwarz MD /leighton
[2021-06-25 11:42] VITALS: BP 134/68
[2021-06-25] MEDS ORDERED: CLONAZEPAM 0.50.5 M1 PO (11:48)
[2021-06-25 14:14] LABS: ABSOLUTE BASOPHILS 0.1 thou/uL (0.0-0.2); ABSOLUTE EOSINOPHILS 0.1 thou/uL (0.0-0.7); ABSOLUTE LYMPHOCYTES 1.2 thou/uL (0.8-5.3); ABSOLUTE MONOCYTES 0.5 thou/uL (0.0-1.2); ABSOLUTE NEUTROPHILS 4.7 thou/uL (1.6-8.1); BASOPHILS 0.8 %; HEMATOCRIT 30.7 % (37.0-47.0); LYMPHOCYTES 17.9 %; MCH 32.2 pg (26.0-34.0); MCHC 32.5 g/dL (28.0-37.0); MONOCYTES 7.2 %; MPV 9.3 fl. (7.2-11.1); NUCLEATED RBCS 0 /100WBC; PLATELET COUNT* 72 thou/uL (150-400); POLYS 72.1 %; RDW-CV 17.6 % (10.5-14.5); WBC 6.5 thou/uL (4.0-11.0)
[2021-06-25 14:30] LABS: ALBUMIN 3.5 g/dL (3.4-5.0); CALCIUM 8.2 mg/dL (8.5-10.1); CREATININE 14.4 mg/dL (0.6-1.3); TOTAL BILIRUBIN 0.4 mg/dL (<0.1-1.0); TOTAL PROTEIN 6.7 g/dL (6.4-8.2)
[2021-06-25 14:42] LABS: POTASSIUM 7.3 mmol/L (3.5-5.1)
--- NOTE | 2021-06-25 15:47 | EKG ---
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 : 1950 Requested By: Tito Ojeda Order Number: [id number] MD: Rebel Floyd Measurements Intervals [place] Rate: 47 P: 41 PA: 239 QRS: 78 QRSD: 184 T: 82 QT: 572 QTc: 506 Interpretive Statements Mild sinus bradycardia with 3:2 sinoatrial conduction block Prolonged PA interval Right bundle branch block Compared to ECG 03/03/2021 13:08:13 Sinus rate has slowed with a 3:2 sinoatrial conduction block noted Electronically Signed On 06-25-2021 15:46:51 [employer]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
--- NOTE | 2021-06-25 18:30 | NUR ---
[facility] NURSE HERE TO DUE DIALYSIS ON PT.
[2021-06-25 19:11] VITALS: BP 155/54
[2021-06-25 22:53] LABS: CALCIUM 8.2 mg/dL (8.5-10.1)
[2021-06-25 22:54] LABS: CREATININE 7.3 mg/dL (0.6-1.3); POTASSIUM 4.1 mmol/L (3.5-5.1)
[2021-06-25 22:58] LABS: ALBUMIN 3.4 g/dL (3.4-5.0); TOTAL BILIRUBIN 0.4 mg/dL (<0.1-1.0); TOTAL PROTEIN 6.6 g/dL (6.4-8.2)
[2021-06-25 23:18] VITALS: BP 150/86
[2021-06-26 02:29] VITALS: BP 151/51
[2021-06-26 02:42] VITALS: BP 151/51
[2021-06-26 05:56] VITALS: BP 137/50
[2021-06-26 08:05] VITALS: BP 112/37
[2021-06-26 12:00] VITALS: BP 129/72
[2021-06-26 14:53] VITALS: BP 129/72
--- NOTE | 2021-06-26 16:54 | NUR ---
CM ASSESSMENT: PT A&O, AND NORMALLY INDEPENDENT WITH ADL'S. PT RESID[facility] AT [facility]. PT USES 2L O2 AT HOME. PT USES A WALKER OR CANE FOR MOBILITY. PT HAS PAST HX OF HH. PT HAS PAST HX OF SNF AT [facility]. PHYSICIAN INFORMS OF PLAN FOR THE PT TO D/C HOME TODAY. NO CM D/C PLANNING NEEDS ANTICIPATED. CM WILL REMAIN AVAILABLE TO ASSIST AND FOLLOW NEEDED.
== END 2021-06-26 15:49 | disposition home or self-care (01) ==
LOC: M.ERS 11:29 → M.TBA-ER 15:05 → M.2W 15:05 → M.TBA-ER 23:05 → M.2W 06-26 01:04
PROVIDERS: Physician Assistant; ADMIT Internal Medicine; ATTEND Internal Medicine
DX: N18.6 End stage renal disease (principal); E87.5 Hyperkalemia; Z20.822 Contact with and (suspected) exposure to COVID-19; E11.22 Type 2 diabetes mellitus with diabetic chronic kidney disease; I12.9 Hypertensive chronic kidney disease with stage 1 through stage 4 chronic kidney disease, or unspecified chronic kidney disease; N18.4 Chronic kidney disease, stage 4 (severe); D63.1 Anemia in chronic kidney disease; D69.6 Thrombocytopenia, unspecified; G40.909 Epilepsy, unspecified, not intractable, without status epilepticus; E03.9 Hypothyroidism, unspecified; E21.3 Hyperparathyroidism, unspecified; F32.9 Major depressive disorder, single episode, unspecified; E66.01 Morbid (severe) obesity due to excess calories; Z82.49 Family history of ischemic heart disease and other diseases of the circulatory system; Z99.2 Dependence on renal dialysis; Z88.2 Allergy status to sulfonamides; Z88.1 Allergy status to other antibiotic agents; Z88.8 Allergy status to other drugs, medicaments and biological substances